=== PATIENT | male | born 1955 | race Caucasian/White ===

== ENCOUNTER 2021-03-29 13:07 | Emergency (ER) | payer MEDICARE, BC ==
[2021-03-29 13:20] VITALS: PULSE 70
[2021-03-29] MEDS ORDERED: Acetaminophen 325 MG Tab PO ONE (13:44)
--- NOTE | 2021-03-29 14:11 | EDM.PDOC ---
ED HPI GENERAL MEDICAL PROBLEM - General Chief Complaint: Headache Stated Complaint: HBP/VOMITING AND HEADACHE Time Seen by Provider: 03/29/21 13:12 Source of Information: Reports: Patient History Limitations: Reports: No Limitations - History of Present Illness INITIAL COMMENTS - FREE TEXT/NARRATIVE: 65-year-old male presents the emergency department today with complaints of a headache. He states that he does not normally have a history of headaches however he developed one yesterday about midmorning. 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 And he feels he has been hydrating well. States he developed a headache and then took some Tylenol and he states the headache went away. He woke this morning and went and drove on the [address] [employer] for about 2 hours he said. When he got home he states he developed a more severe headache and took 2 Tylenol. Within approximately 20 minutes he said the headache was so severe it caused him to vomit once. He states the headache has been present ever since. Rates the headache at a 6 out of 10. States it is in the frontal area and it is throbbing. Again, he has no history of headaches or migraines. He states he did have some blurred vision at the time his headache was severe and he vomited. He states after that the blurred vision did resolve. He denies any ringing in his ears. He denies any weakness in his extremities. Denies any chest pressure/pain or shortness of breath. He has not had any fever or chills. He has not had any diarrhea. Denies any urinary symptoms. He states he is otherwise healthy and does not take any prescription medications. His primary care provider is LATISHA Cruz. Forehead Pain Score (Numeric/FACES): 8 - Related Data Allergies Allergy/AdvReac Type Severity Reaction Status Date / Time Penicillins Allergy Swelling Verified 03/29/21 13:20 Home Meds: Home Meds Doxycycline [Vibra-Tabs] 100 mg PO BID #13 tablet 03/29/21 [Rx] Past Medical History - Past Health History Medical/Surgical History: Denies Medical/Surgical History HEENT History: Reports: Impaired Vision Other HEENT History: cornea abrasion/foreign body, sinus surgery, glasses Other Respiratory History: Moderate Snoring with witnessed apnea Social & Family History - Tobacco Use Tobacco Use Status *Q: Never Tobacco User - Recreational Drug Use Recreational Drug Use: No ED ROS GENERAL - Review of Systems Review Of Systems: Comprehensive ROS is negative, except as noted in HPI. - Physical Exam Exam: See Below Exam Limited By: No Limitations General Appearance: Alert, WD/WN, Mild Distress Eye Exam: Bilateral Eye: EOMI, PERRL Ears: Normal External Exam, Normal Canal, Hearing Grossly Normal Nose: Normal Inspection Throat/Mouth: Normal Inspection, Normal Lips, Normal Voice, No Airway Compromise Head Exam: Atraumatic, Normocephalic Neck: Normal Inspection, Supple, Non-Tender, Full Range of Motion Respiratory/Chest: No Respiratory Distress, Lungs Clear, Normal Breath Sounds, No Accessory Muscle Use, Chest Non-Tender Cardiovascular: Normal Peripheral Pulses, Regular Rate, Rhythm, No Edema, No Murmur GI/Abdominal: Normal Bowel Sounds, Soft, Non-Tender, No Distention (Male) Exam: Deferred Rectal (Males) Exam: Deferred Neuro Exam (Abbreviated): Alert, Oriented, CN II-XII Intact, Normal Cognition, Normal Gait Back Exam: Normal Inspection Extremities: Normal Inspection, Normal Range of Motion Psychiatric: Normal Affect Skin Exam: Warm, Dry, Intact, Normal Color, No Rash Course - Vital Signs Text/Narrative:: Patient presents with headache that started yesterday. It did resolve with Tylenol however he again developed a frontal headache rated 6 out of 10 today for which she took Tylenol and then shortly thereafter vomited due to the severity of the headache pain. States that the headache is still present at a 6 out of 10. He also had blurred vision associated with the headache pain. I have ordered a CT of the head. I will also obtain labs to include a CBC, CMP, and a magnesium level. We will give the patient another dose of Tylenol orally. Last Recorded V/S: Last Vital Signs Temp 96.3 F L 03/29/21 13:18 Pulse 70 03/29/21 13:18 Resp 16 03/29/21 13:18 BP 177/113 H 03/29/21 13:18 Pulse Ox 99 03/29/21 13:18 - Orders/Labs/Meds Orders: Active Orders 24 hr Category Date Time Status Head wo Cont [CT] Stat Exams 03/29/21 13:44 Taken Labs: Laboratory Tests 07/04/21 07/04/21 Range/Units 13:50 13:50 WBC 9.31 H (4.23-9.07) K/mm3 RBC 4.98 (4.63-6.08) M/mm3 Hgb 15.1 (13.7-17.5) gm/dl Hct 44.7 (40.1-51.0) % MCV 89.8 (79.0-92.2) fl MCH 30.3 (25.7-32.2) pg MCHC 33.8 (32.2-35.5) g/dl RDW Std Deviation 41.9 (35.1-43.9) fL Plt Count 207 (163-337) K/mm3 MPV 9.3 L (9.4-12.3) fl Neut % (Auto) 84.1 H (34.0-67.9) % Lymph % (Auto) 6.6 L (21.8-53.1) % [place] % (Auto) 7.4 (5.3-12.2) % Eos % (Auto) 1.3 (0.8-7.0) Baso % (Auto) 0.4 (0.1-1.2) % Neut # (Auto) 7.83 H (1.78-5.38) K/mm3 Lymph # (Auto) 0.61 L (1.32-3.57) K/mm3 [place] # (Auto) 0.69 (0.30-0.82) K/mm3 Eos # (Auto) 0.12 (0.04-0.54) K/mm3 Baso # (Auto) 0.04 (0.01-0.08) K/mm3 Manual Slide Review Normal smear Sodium 140 (136-145) mEq/L Potassium 3.8 (3.5-5.1) mEq/L Chloride 103 (98-107) mEq/L Carbon Dioxide 27 (21-32) mEq/L Anion Gap 13.8 (5-15) BUN 15 (7-18) mg/dL Creatinine 1.2 (0.7-1.3) mg/dL Est Cr Clr Drug Dosing 61.37 mL/min Estimated GFR (MDRD) > 60 (>60) mL/min BUN/Creatinine Ratio 12.5 L (14-18) Glucose 110 H (70-99) mg/dL Calcium 8.4 L (8.5-10.1) mg/dL Magnesium 2.0 (1.8-2.4) mg/dL Total Bilirubin 0.5 (0.2-1.0) mg/dL AST 23 (15-37) U/L ALT 32 (16-63) U/L Alkaline Phosphatase 70 (46-116) U/L Total Protein 6.4 (6.4-8.2) g/dl Albumin 3.6 (3.4-5.0) g/dl Globulin 2.8 gm/dL Albumin/Globulin Ratio 1.3 (1-2) Meds: Medications Discontinued Medications Generic Name Dose Route Start Last Admin Trade Name Quyen PRN Reason Stop Dose Admin Acetaminophen 650 mg 03/29/21 13:44 03/29/21 13:49 Acetaminophen 325 Mg Tab PO 03/29/21 13:45 650 mg NOW ONE Administration Doxycycline Hyclate 100 mg 03/29/21 14:41 Doxycycline 100 Mg Cap PO 03/29/21 14:42 ONETIME ONE - Re-Assessments/Exams Free Text/Narrative Re-Assessment/Exam: 03/29/21 14:[address] of the head without contrast: Sinusitis 03/29/21 14:55 Hematology reveals a WBC of 9.31, hemoglobin 15.1, hematocrit 44.7, platelet count 207 Chemistry reveals a sodium of 140, potassium 3.8, carbon dioxide 27, anion gap 13.8, BUN 15, creatinine 1.2, glucose 110, magnesium 2.0 Patient reports that his headache pain is better after receiving Tylenol. I have ordered for him to receive a dose of doxycycline 100 mg p.o. I will send a prescription to his pharmacy for doxycycline 100 mg p.o. twice daily x7 days. His blood pressures have been borderline while in the emergency department 140s to 160s over 80s to 90s. I discussed this with him and I recommended that he follow-up with his primary care provider in about a week once he is completed his antibiotic treatment to be reevaluated and to follow-up with the blood pressures. I have also informed him that it would be helpful for him to keep a blood pressure log at home over the course the next week to take to his appointment with his primary care provider. Patient does verbalize understanding of this. Departure - Departure Time of Disposition: 14:56 Disposition: Home, Self-Care 01 Condition: Good Clinical Impression: Sinusitis - Discharge Information Prescriptions: Doxycycline [Vibra-Tabs] 100 mg PO BID #13 tablet Referrals: Ulises Rosas PA-C [Primary Care Provider] - Forms: ED Department Discharge Additional Instructions: You were seen in the emergency department today with complaints of headache pain and an episode of vomiting x1. CT scan of the head was completed and this did show that you have sinusitis. Your lab work was essentially unremarkable. Your blood pressure was slightly elevated while in the emergency department. I have sent a prescription for an antibiotic called doxycycline to [facility]. You will need to take this twice daily until its gone. Be sure to complete the course of antibiotics in its entirety. I would like you to follow-up with your primary care provider in about a week once you finish your antibiotic treatment. I would also like you to start keeping a log of your blood pressures to take with you to this appointment so that he can evaluate your blood pressure as well. You may take Tylenol 650 mg every 4 hours as needed for headache discomfort. Keep in mind it may take 48 to 96 hours before you notice the antibiotic working. Should your condition worsen or change, do not hesitate returning to the emergency department. Sepsis Event Note (ED) - Evaluation Sepsis Screening Result: No Definite Risk - Focused Exam Vital Signs: Vital Signs Temp Pulse Resp BP Pulse Ox 03/29/21 13:18 96.3 F L 70 16 177/113 H 99 - My Orders Last 24 Hours: My Active Orders 03/29/21 13:44 Head wo Cont [CT] Stat - Assessment/Plan Last 24 Hours: My Active Orders 03/29/21 13:44 Head wo Cont [CT] Stat
[2021-03-29] MEDS ORDERED: Doxycycline 100 MG Cap PO ONE (14:41)
[2021-03-29 15:09] VITALS: BP 155/94
--- NOTE | 2021-03-30 12:44 | CT ---
Head CT Technique: Multiple axial sections through the brain were obtained. Intravenous contrast was not utilized. Reconstructed coronal and sagittal images were obtained. Comparison: Prior head CT study of 08/02/16. Findings: Ventricles along with basal cisterns and sulci over the convexities appear within normal limits for the patient's age. No abnormal parenchymal densities are seen. No evidence of intracranial hemorrhage is seen. No midline shift or mass-effect is seen. Bone window settings were reviewed. Scattered mucosal thickening is seen with the left maxillary sinus and within the ethmoid sinuses. No fluid levels are seen. Visualized mastoid sinuses are clear. Impression: 1. Sinus findings with no air-fluid levels. Sinus findings most likely represent chronic sinusitis. 2. No acute intracranial abnormality is otherwise seen on noncontrasted CT exam. Diagnostic code #2 I agree with preliminary report from [facility], finalized on 03/29/21, 3:24 PM CDT, code 1
== END 2021-03-29 15:05 | disposition home or self-care (01) ==
LOC: JD.ED 13:07
DX: J32.9 Chronic sinusitis, unspecified (principal); Z88.0 Allergy status to penicillin
CPT/HCPCS: 36415; 70450; 80053; 83735; 85025; 99284; A9270

== ENCOUNTER 2023-10-24 00:10 | Emergency (ER) | payer MEDICARE, BC ==
[2023-10-24 00:37] VITALS: PULSE 79
[2023-10-24 00:41] LABS: BASOPHILS PERCENT AUTO 0.2 % (0.0-1.0); EOSINOPHILS ABSOLUTE AUTO 0.1 K/mm3 (0.0-0.4); EOSINOPHILS PERCENT AUTO 1.2 % (0.0-6.0); HEMOGLOBIN 13.1 gm/dl (14.0-18.0); IMMATURE GRAN ABSOLUTE AUTO 0.04 K/mm3 (0.00-0.05); IMMATURE GRAN PERCENT AUTO 0.5 % (0.0-0.4); LYMPHOCYTES ABSOLUTE AUTO 0.5 K/mm3 (1.0-4.8); LYMPHOCYTES PERCENT AUTO 5.5 % (24.0-44.0); MEAN CORPUSCULAR HEMOGLOBIN 30.4 pg (28.0-32.0); MEAN CORPUSCULAR HGB CONC 34.5 g/dl (32.0-36.0); MEAN CORPUSCULAR VOLUME 88.2 fl (83.0-99.0); MEAN PLATELET VOLUME 8.9 fl (9.4-12.4); MONOCYTES ABSOLUTE AUTO 1.3 K/mm3 (0.0-0.8); NEUTROPHILS ABSOLUTE AUTO 6.6 K/mm3 (1.8-7.7); NEUTROPHILS PERCENT AUTO 77.6 % (41.0-71.0); PLATELET COUNT,PLT 140 K/mm3 (150-400); RED BLOOD CELL COUNT 4.31 M/mm3 (4.52-5.90); WHITE BLOOD CELL COUNT,WBC 8.49 K/mm3 (3.9-11.3)
[2023-10-24 00:53] LABS: APPEARANCE,URINE CLEAR (Clear); BILIRUBIN,URINE NEGATIVE (Negative); COLOR,URINE YELLOW (Yellow); GLUCOSE,URINE NEGATIVE (Negative); KETONES,URINE 1+ (Negative); LEUKOCYTE ESTERASE,URINE NEGATIVE (Negative); NITRITE,URINE NEGATIVE (Negative); OCCULT BLOOD,URINE 2+ (Negative); PROTEIN,URINE 1+ (Negative); UROBILINOGEN,URINE 0.2 (0.2-1.0)
[2023-10-24 01:00] LABS: A/G RATIO 0.9 (1-2); ALBUMIN 2.8 g/dl (3.4-5.0); ANION GAP 12.8 (5-15); BILIRUBIN TOTAL 0.4 mg/dL (0.2-1.0); BUN/CREATININE RATIO 11.8 (14-18); CALCIUM 7.7 mg/dL (8.5-10.1); CREATININE 1.1 mg/dL (0.7-1.3); EST CRCL DRUG DOSING (CG) 66.36 mL/min; MAGNESIUM 1.3 mg/dL (1.8-2.4); POTASSIUM,K 3.8 mEq/L (3.5-5.1); PROTEIN TOTAL,TP 6.1 g/dl (6.4-8.2)
[2023-10-24 01:00] LABS: BACTERIA,URINE RARE /hpf (FEW); EPITHELIAL CELLS,URINE NOT SEEN /hpf (0-5); MUCUS,URINE FEW /hpf (FEW); WBC,URINE 0-5 /hpf (0-5)
[2023-10-24 01:05] LABS: BARBITURATE SCREEN,URINE NEGATIVE (CUTOFF=200); BENZODIAZEPINES SCREEN,URINE NEGATIVE (CUTOFF=150); BUPRENORPHINE SCREEN,URINE NEGATIVE (CUTOFF=10); METHADONE SCREEN, URINE NEGATIVE (CUT0FF=200); METHAMPHETAMINES SCREEN, URINE NEGATIVE (CUTOFF=500); OXYCODONE SCREEN,URINE NEGATIVE (CUT0FF=100); THC SCREEN,URINE 20 NG/ML NEGATIVE (CUTOFF=50)
[2023-10-24 01:09] LABS: AMPHETAMINES SCREEN, URINE NEGATIVE (CUTOFF=500)
[2023-10-24] MEDS ORDERED: Acetaminophen 325 MG Tab PO ONE (01:25)
[2023-10-24 02:25] VITALS: BP 133/70
== END 2023-10-24 02:32 | disposition home or self-care (01) ==
LOC: JD.ED 00:10
DX: S00.83XA Contusion of other part of head, initial encounter (principal); J32.0 Chronic maxillary sinusitis; W18.30XA Fall on same level, unspecified, initial encounter; Z79.899 Other long term (current) drug therapy; Z88.0 Allergy status to penicillin
CPT/HCPCS: 36415; 70450; 70486; 71045; 72125; 80053; 80306; 80307; 81001; 83735; 85025; 93005; 99285; A9270; 93010; 99283

== ENCOUNTER 2025-04-23 08:19 | Day surgery (SDC) | payer MEDICARE, BC ==
[~2025-04-23 08:19] MED LIST: Sodium Chloride 0.9% 10 ML Syringe FLUSH PRN; Sodium Chloride 0.9% 10 ML Syringe FLUSH SCH
[2025-04-23] MEDS: Lactated Ringers 1,000 ML IV SCH (08:50)
[2025-04-23] MEDS ORDERED: Propofol 200 MG/20 ML SDV ONE (10:07)
[2025-04-23] MEDS ORDERED: Ondansetron 4 MG/2 ML SDV ONE (10:10)
[2025-04-23 11:35] VITALS: BP 132/70; PULSE 70
== END 2025-04-23 11:30 | disposition home or self-care (01) ==
LOC: JD.SDS 08:19
PROVIDERS: ATTEND Surgery
DX: Z12.11 Encounter for screening for malignant neoplasm of colon (principal); D12.8 Benign neoplasm of rectum; K62.89 Other specified diseases of anus and rectum; K64.4 Residual hemorrhoidal skin tags; R19.5 Other fecal abnormalities; I10 Essential (primary) hypertension; Z88.0 Allergy status to penicillin; Z79.899 Other long term (current) drug therapy
CPT/HCPCS: 45385; J2003; J2405; J2704; J7120; 00811; 88305